=== PATIENT | female | born 1960 | race Caucasian/White ===

== ENCOUNTER → 2019-02-22 | Outpatient (CLI) | payer BC ==
--- NOTE | 2019-02-23 07:09 | RAD ---
EXAM DESCRIPTION: Shoulder,Left 2 or More Views CLINICAL HISTORY: 58 years Female, PAIN IN LEFT SHOULDER COMPARISON: None. FINDINGS: Two views of the left shoulder show a slightly displaced left humeral head fracture with questionable extension into the left humeral neck. Abnormal projection of the left humeral head over the glenoid may be related to patient positioning or true malalignment. The left AC joint shows only mild degenerative changes. No apparent left-sided rib fracture or soft tissue abnormality. IMPRESSION: Slightly displaced left humeral head fracture with questionable extension into the left humeral neck. CT should be considered for further evaluation. Abnormal appearance of the left glenohumeral joint which may be related to patient positioning or true subluxation/dislocation. This can also be further evaluated with CT. Electronically signed by: Will Gar MD 02/23/2019 7:06 AM CDT
== END ==
LOC: RAD 09:56
PROVIDERS: ATTEND Orthopaedic Surgery
DX: S42.292A Other displaced fracture of upper end of left humerus, initial encounter for closed fracture (principal)

== ENCOUNTER → 2019-02-28 | Outpatient (CLI) | payer BC ==
--- NOTE | 2019-02-28 15:24 | CT ---
Study: CT of the Left Shoulder. Indication: FRACTURE OF UPPER END OF LEFT HUMERUS Technique: Axial CT of the left shoulder was performed without contrast. Coronal and sagittal reformats performed. This exam was performed according to our departmental dose-optimization program, which includes automated exposure control, adjustment of the mA and/or kV according to patient size and/or use of iterative reconstruction technique. Comparison: Radiographs February 22, 2019. Findings: Mild AC joint osteoarthritis. Type II acromion with mild lateral downsloping. Impaction fracture involving the surgical neck of the humerus noted with a degree of impaction measuring 17 mm craniocaudal. There is a subtle sagittal/oblique component involving the inferolateral aspect of the greater tuberosity. No appreciable disruption of the horizontal footprint. No involvement of the articular surface of the humeral head. No involvement of the lesser tuberosity. At the fracture site involving the surgical neck and metaphysis there is central medullary lucency. This could indicate underlying lytic lesion with pathologic fracture. Humeral head normally located. No advanced glenohumeral joint osteoarthritis. Impression: Acute impacted fracture involving the surgical neck of the humerus and inferolateral margin of the greater tuberosity. There is central lucency/lytic appearance of the surgical neck and metaphysis of the proximal humerus. An underlying aggressive lesion may be present, and this fracture could be pathologic. Correlation for history of malignancy recommended. Electronically signed by: Gilbert Almaraz MD 02/28/2019 3:22 PM CDT
== END ==
LOC: CT 09:04
PROVIDERS: ATTEND Orthopaedic Surgery
DX: S42.212A Unspecified displaced fracture of surgical neck of left humerus, initial encounter for closed fracture (principal)

== ENCOUNTER → 2019-04-02 | Outpatient (CLI) | payer BC ==
--- NOTE | 2019-04-02 11:57 | RAD ---
XR SHOULDER 2 OR MORE VIEWS HISTORY: 58 years Female S42.202D COMPARISON: None. TECHNIQUE: 2 views of the left shoulder. IMPRESSION: Redemonstrated comminuted fracture of the proximal left humerus, grossly unchanged from the prior comparison study. Fracture lucencies are less conspicuous on today's exam, which may represent interval healing. Previously seen lucent focus on the prior comparison CT is not well visualized radiographically. Remaining included osseous structures appear grossly intact. Left acromioclavicular joint appears grossly intact. Mild degenerative changes of the left AC joint. Coracoclavicular interval is within normal limits. Included overlying soft tissues demonstrate no definite acute process. Electronically signed by: Migel Villagomez MD 04/02/2019 11:55 AM CDT
== END ==
LOC: RAD 07:53
PROVIDERS: ATTEND Orthopaedic Surgery
DX: S42.202D Unspecified fracture of upper end of left humerus, subsequent encounter for fracture with routine healing (principal); M19.012 Primary osteoarthritis, left shoulder

== ENCOUNTER → 2019-04-02 | Outpatient (CLI) | payer BC ==
--- NOTE | 2019-04-02 15:46 | RAD ---
EXAM: Wrist,Left 3 Views CLINICAL HISTORY: PAIN IN LEFT WRIST. TECHNIQUE: AP, lateral and oblique images. COMPARISON STUDY: None FINDINGS: There is a diffuse demineralization could prevent identification of nondisplaced fractures. No displaced fracture is seen. There is no dislocation. The lateral view shows a dorsal tilt to the lunate. There is no widening between the lunate and scaphoid. There are mild osteoarthritic changes of the lateral carpal row. Chronic calcifications are seen distal to the ulnar styloid. IMPRESSION: 1. Mild osteoarthritic changes of the lateral carpal row. 2. Dorsal tilt to the lunate can indicate instability. No visible fracture or dislocation Electronically signed by: Alex Valentin MD 04/02/2019 3:44 PM CDT
== END ==
LOC: RAD 09:25
PROVIDERS: ATTEND Orthopaedic Surgery
DX: M19.032 Primary osteoarthritis, left wrist (principal)

== ENCOUNTER → 2019-04-12 | Outpatient (CLI) | payer BC ==
--- NOTE | 2019-04-13 16:09 | RAD ---
EXAM DESCRIPTION: Shoulder,Left 2 or More Views CLINICAL HISTORY: S42.202D COMPARISON: Previous study April 02, 2019 TECHNIQUE: Two views of the left shoulder. FINDINGS: There is adequate internal and external rotation. Osteoporotic appearance of bones is noted with fractured proximal left humerus deformity. The fracture lines are less distinct than on previous study consistent with continued healing. Humeral head is rotated medially. There is articulation of the humeral head with the glenoid fossa. Left lung is clear. Degenerative changes in the C-spine. AC joint is intact. IMPRESSION: Healing fracture of the proximal left humerus. Electronically signed by: Blair Gage MD 04/13/2019 4:07 PM CDT
== END ==
LOC: RAD 08:56
PROVIDERS: ATTEND Orthopaedic Surgery
DX: S42.202D Unspecified fracture of upper end of left humerus, subsequent encounter for fracture with routine healing (principal)

== ENCOUNTER → 2019-05-03 | Outpatient (CLI) | payer BC ==
--- NOTE | 2019-05-03 10:29 | RAD ---
EXAM DESCRIPTION: Shoulder,Left 2 or More Views CLINICAL HISTORY: S42.202D left shoulder pain COMPARISON: April 12, 2019. FINDINGS: 2 views of left shoulder show diffuse osteopenia the osseous structures. Proximal left humerus deformity is again seen with fracture lines less distinct than on previous exam. No significant callus formation is seen. Humeral head is rotated medially. Left acromioclavicular joint osteoarthritic changes are seen. Degenerative changes and facet arthropathy of the cervical spine is noted. No glenohumeral joint dislocation. IMPRESSION: Continued healing left humeral head fracture. Electronically signed by: Michi Faith MD 05/03/2019 10:27 AM CDT
== END ==
LOC: RAD 08:54
PROVIDERS: ATTEND Orthopaedic Surgery
DX: S42.202D Unspecified fracture of upper end of left humerus, subsequent encounter for fracture with routine healing (principal)

== ENCOUNTER → 2019-05-31 | Outpatient (CLI) | payer BC ==
--- NOTE | 2019-05-31 10:43 | RAD ---
XR SHOULDER 2 OR MORE VIEWS HISTORY: 58 years Female S42.202D COMPARISON: May 03, 2019. TECHNIQUE: AP internal rotation, AP external rotation, and scapular Y views of the left shoulder. FINDINGS: Acute mildly impacted fracture at the surgical neck of the left humerus is again noted. Findings appear unchanged from the prior comparison study. Remaining osseous structures appear intact. No dislocation. Moderate degenerative changes again seen at the left acromio clavicular joint. Coracoclavicular interval is maintained. Included overlying soft tissues demonstrate no definite acute process. IMPRESSION: Unchanged radiographic examination of the left shoulder, with redemonstrated fracture at the surgical neck of the left humerus. Electronically signed by: Migel Villagomez MD 05/31/2019 10:41 AM CDT
== END ==
LOC: RAD 08:27
PROVIDERS: ATTEND Orthopaedic Surgery
DX: S42.202D Unspecified fracture of upper end of left humerus, subsequent encounter for fracture with routine healing (principal)

== ENCOUNTER → 2019-07-02 | Outpatient (CLI) | payer BC ==
--- NOTE | 2019-07-02 09:32 | RAD ---
EXAM DESCRIPTION: Shoulder,Left 2 or More Views CLINICAL HISTORY: closed fracture of humerus COMPARISON: Radiograph most recent dated 05/31/2019 TECHNIQUE: Two views of the left shoulder. FINDINGS/IMPRESSION: Progressive interval healing of the left proximal humerus surgical neck fracture extending to the greater tuberosity with decreased fracture lucency and stable osseous alignment. The left acromioclavicular and glenohumeral joints are intact without dislocation. The bone mineralization is decreased. Electronically signed by: Jesús Lopez DO 07/02/2019 9:30 AM CDT
== END ==
LOC: RAD 08:42
PROVIDERS: ATTEND Orthopaedic Surgery
DX: S42.202D Unspecified fracture of upper end of left humerus, subsequent encounter for fracture with routine healing (principal)